=== PATIENT | male | born 1980 | race Caucasian/White ===

== ENCOUNTER 2017-07-06 13:26 | Emergency (ER) | payer OTHER ==
[2017-07-06] MEDS ORDERED: ASPIRIN 81 MG TABLET, CHEWABLE PO ONE (14:40)
--- NOTE | 2017-07-06 15:02 | RADIOLOGY REPORT (SQ) ---
EXAM DESCRIPTION: CHEST SINGLE VIEW COMPLETED DATE/TIME: 07/06/2017 2:55 pm REASON FOR STUDY: chest pain COMPARISON: None. EXAM PARAMETERS: NUMBER OF VIEWS: One view. TECHNIQUE: Single frontal radiographic view of the chest acquired. RADIATION DOSE: NA LIMITATIONS: None. FINDINGS: LUNGS AND PLEURA: No opacities, masses or pneumothorax. No pleural effusion. MEDIASTINUM AND HILAR STRUCTURES: No masses. Contour normal. HEART AND VASCULAR STRUCTURES: Heart normal in size. Normal vasculature. BONES: No acute findings. HARDWARE: None in the chest. OTHER: No other significant finding. IMPRESSION: NO ACUTE RADIOGRAPHIC FINDING IN THE CHEST. TECHNICAL DOCUMENTATION: JOB ID: [id number] [employer]- All Rights Reserved Reading location - IP/workstation name: [email or web address]
[2017-07-06 15:35] LABS: ABSOLUTE LYMPHOCYTES (AUTO) 0.7 10^3/uL (0.5-4.7); ABSOLUTE MONOCYTES (AUTO) 0.6 10^3/uL (0.1-1.4); ABSOLUTE NEUT (AUTO) 9.9 10^3/uL (1.7-8.2); BASOPHILS % (AUTO) 0.1 % (0-2); EOSINOPHILS % (AUTO) 0.1 % (0-6); HEMATOCRIT 44.2 % (37.9-51.0); HEMOGLOBIN 15.2 g/dL (13.5-17.0); LYMPHOCYTES % (AUTO) 6.6 % (13-45); MEAN CORPUSCULAR HGB CONC 34.4 g/dL (32.0-36.0); MEAN CORPUSCULAR VOLUME 99 fl (80-97); MONOCYTES % (AUTO) 5.1 % (3-13); PLATELET COUNT 310 10^3/uL (150-450); RED BLOOD COUNT 4.48 10^6/uL (4.35-5.55); RED CELL DISTRIBUTION WIDTH 13.1 % (11.5-14.0); SEGMENTED NEUTROPHILS % (AUTO) 88.1 % (42-78); TOTAL CELLS COUNTED % (AUTO) 100 %; WHITE BLOOD COUNT 11.2 10^3/uL (4.0-10.5)
--- NOTE | 2017-07-06 15:45 | ER Document Report ---
ED General - General Chief Complaint: Chest Pain Stated Complaint: RT ARM NUMBNESS Time Seen by Provider: 07/06/17 14:40 Notes: Patient says that he has not been feeling well for the past couple of weeks, since returning to his assignment in [place]. Patient says that he drove cross-country from [place] to here about 12 days ago. He was feeling fine before he drove back here. He says that his driving times were 5-6 hours of driving without a break. Patient says that he has developed weakness and shaking and loss of appetite. He is also having episodes of vomiting as well as cold sweats. He noted some numbness in the dorsal lateral aspect of his right hand, today, which seems to be resolving. He is also having some chest "pressure" in the lower anterior center of his chest, lower substernal region. Has been nauseated and actually vomited a few times. No change in bowel movements. Has not had any fever but has had sweats. Says he has not been short of breath. Patient customarily runs 3-4 times a week, 3-6 miles each time, but he has not done that since March because he had some right knee problems and was advised not to run. He thinks that may have something to do with his stamina. Denies any headache. No loss of consciousness. - Related Data Allergies/Adverse Reactions: No Known Allergies Allergy (Verified 07/06/17 14:45) Past Medical History - Social History Smoking Status: Unknown if Ever Smoked Chew tobacco use (# tins/day): Yes Frequency of alcohol use: Social Drug Abuse: None Family History: Reviewed & Not Pertinent Patient has suicidal ideation: No Patient has homicidal ideation: No Renal/ Medical History: Denies: Hx Peritoneal Dialysis Review of Systems - Review of Systems Notes: REVIEW OF SYSTEMS: CONSTITUTIONAL : Denies fever. Has had sweats. EENT: Denies eye, ear, nose or mouth or throat pain or other symptoms. CARDIOVASCULAR: Denies chest pain, but has felt some chest "pressure" in lower central chest intermittently over past weeks. RESPIRATORY: Denies cough, chest congestion, shortness of breath. GASTROINTESTINAL: Denies abdominal pain. Nausea and couple of vomitings. GENITOURINARY: Denies difficulty or painful urinating, urinary frequency, blood in urine. MUSCULOSKELETAL: Denies back or neck pain. Denies joint pain or swelling. SKIN: Denies rash or skin lesions. Bruise proximal left lower leg x 2 days-- thinks due to boots he wears. NEUROLOGICAL: Denies LOC or altered mental status. Denies headache. Denies sensory loss or motor deficits. Notes numb feeling dorsal lateral right hand Psych: anxiety on Zoloft ALL OTHER SYSTEMS REVIEWED AND NEGATIVE. Physical Exam - Vital signs Vitals: Temp Pulse Resp BP Pulse Ox 98.4 F 122 H 16 144/83 H 97 07/06/17 13:36 07/06/17 13:36 07/06/17 13:36 07/06/17 13:36 07/06/17 13:36 - Notes Notes: PHYSICAL EXAMINATION: GENERAL: Well-appearing, in no acute distress. Patient initial EKG at triage shows rate 120, normal sinus rhythm. HEAD: Atraumatic, normocephalic. EYES: Pupils equal round and reactive to light, extraocular movements intact. ENT: oropharynx clear without exudates. Moist mucous membranes. NECK: Normal range of motion, supple. LUNGS: Breath sounds clear and equal bilaterally. HEART: Regular rate and rhythm without murmurs. Heart rate about 100. Regular. ABDOMEN: Soft, nontender. No guarding or rebound. No masses. BACK: No tenderness throughout entire back. EXTREMITIES: Normal range of motion without pain. Nevagtive Homans sign bilaterally. NEUROLOGICAL: Normal speech, normal gait. Normal sensory, motor, and reflex exams. Awake, alert, and oriented x3. Cranial nerves normal. normal right hand exam PSYCH: Normal mood, normal affect. Anxious. SKIN: Warm, dry, no rashes. 4 - 5 cm diameter bruise inner, proximal, left lower leg. Course - Re-evaluation Re-evalutation: 07/06/17 20:53 Patient symptoms almost all cleared completely. Additionally, his electronic device monitor went from a heart rate of about 122 when he was triaged and confirmed on his first EKG to a rate of about 90 and he says he feels much better. His laboratory workup is essentially normal. Nurse informs me that the patient informed her that he had gone out drinking last night and when I questioned him, he said he had some shots in about 6 beers. - Vital Signs Vital signs: Temp Pulse Resp BP Pulse Ox 98.4 F 122 H 20 143/84 H 96 07/06/17 13:36 07/06/17 13:36 07/06/17 18:01 07/06/17 18:01 07/06/17 18:01 - Laboratory Result Diagrams: 07/06/17 15:15 07/06/17 15:15 Laboratory results interpreted by me: 07/06/17 07/06/17 07/06/17 15:15 15:15 15:15 WBC 11.2 H MCV 99 H MCH 34.0 H Seg Neutrophils % 88.1 H Lymphocytes % 6.6 L Absolute Neutrophils 9.9 H Chloride 97 L Calcium 10.3 H AST 65 H TSH 0.30 L Discharge - Discharge Clinical Impression: Sinus tachycardia, Anxiety Condition: Stable Disposition: HOME, SELF-CARE Additional Instructions: Sinus Tachycardia The palpitations (racing heart) you have felt are due to "sinus tachycardia." This is a rapid (but NORMAL) rhythm which can be due to fever, pain, anxiety, lack of sleep, over-exertion, or drugs. Cold medications, caffeine, and diet pills are particularly likely to cause tachycardia. The doctor has found no evidence of heart disease. Occasionally, medication is required for uncomfortable palpitations. Usually, however, all that is required is rest, reassurance, and avoiding caffeine, alcohol, nicotine , and unnecessary medicines. Call the doctor if you develop any new or unusual symptoms, or if the rapid heartbeat does not resolve. NORMAL EXAM AND WORKUP: At this time, your examination and workup show no significant abnormality. No significant abnormal physical findings were noted. All laboratory, EKG, and imaging (x-ray, CT scans, ultrasound) studies that were ordered show no significant abnormality. Although your examination and all studies that were ordered showed no significant abnormal finding, there are no examinations and no studies that are 100% accurate. There is always the possibility that some abnormality could exist and not be detected with physical examination or within the limits and capabilities of laboratory and other studies. You should return or follow up as you were instructed on your visit today for further evaluation if your symptoms do not resolve. Possible Viral Illness The physician has diagnosed a possible viral infection. Viruses not only cause "colds," but can cause many different symptoms including generalized aching, fever, headache, cough, diarrhea, nausea, vomiting, and fatigue. The treatment, for the most part, is simply relief of symptoms. This means that antibiotics are usually not given. Rest, fluids, pain medications and, occasionally, medication for the specific symptoms that are most bothersome will be prescribed. Use good handwashing to avoid passing the virus to others. Shared toys should be cleaned with disinfectant. Clean the toilets, sinks, and counter surfaces in bathrooms. Launder clothing in hot water. Contact the physician if you develop any new or unusual symptoms such as severe headache, stiff neck, high fever, chest pain, productive cough, or shortness of breath. You should be rechecked if you don't see marked improvement within seven to 10 days. Anxiety The physician feels that some of your health problems are being caused by anxiety. Anxiety affects your health in many ways. Anxiety alone can cause palpitations, sweats, chest pains, abdominal pains, shortness of breath, and headaches. It contributes to ulcer disease, high blood pressure, irritable bowel syndrome, and has been shown to cause flare-ups of many other diseases. Anxiety is not a simple disorder to treat. If the anxiety is due to recent life stresses, you may simply need time to "work through" the changes. If the anxiety is due to an underlying unhappiness with yourself or due to psychiatric disturbance, professional help will be needed. Your physician can refer you for further help if needed. Anti-anxiety medication is occasionally given if the stress is acute or if you are having trouble sleeping. Chronic or frequent use of these medications is not a good idea because the body becomes reliant on it, preventing you from dealing with life's normal stresses. Your heart rate has returned to normal and all of your lab workup is essentially normal with only minor discrepancies that are not clinically, medically significant. You might have a viral illness causing your symptoms. If so, that should resolve over the next couple of days. If you are not doing any better by Friday, I suggested [place]eval[place] Or, you can always return here for reevaluation. Drink plenty of fluids and get plenty of rest. If you develop new symptoms or worsening symptoms, return at anytime. FOLLOW-UP CARE: If you have been referred to a physician for follow-up care, call the physician s office for an appointment as you were instructed or within the next two days. If you experience worsening or a significant change in your symptoms, notify the physician immediately or return to the Emergency Department at any time for re-evaluation.
[2017-07-06 16:00] LABS: ALANINE AMINOTRANSFERASE 68 U/L (21-72); ALBUMIN 4.8 g/dL (3.5-5.0); ALKALINE PHOSPHATASE 68 U/L (38-126); ANION GAP 16 (5-19); ASPARTATE AMINO TRANSFERASE 65 U/L (17-59); BILIRUBIN,DIRECT 0.2 mg/dL (0.0-0.4); BILIRUBIN,TOTAL 0.5 mg/dL (0.2-1.3); BLOOD UREA NITROGEN 9 mg/dL (7-20); CALCIUM 10.3 mg/dL (8.4-10.2); CARBON DIOXIDE 30 mmol/L (22-30); CHLORIDE 97 mmol/L (98-107); CREATINE KINASE 140 U/L (55-170); GLUCOSE 92 mg/dL (75-110); POTASSIUM 4.3 mmol/L (3.6-5.0); SODIUM 142.5 mmol/L (137-145); TOTAL PROTEIN 7.8 g/dL (6.3-8.2)
[2017-07-06 16:03] LABS: CREATINE KINASE MB 0.95 ng/mL (<4.55)
[2017-07-06 16:05] LABS: TROPONIN I < 0.012 ng/mL
[2017-07-06 16:08] LABS: FREE T3 4.57 pg/mL (2.77-5.27); FREE T4 (FREE THYROXINE) 0.88 ng/dL (0.78-2.19)
[2017-07-06 16:22] LABS: THYROID STIMULATING HORMONE 0.3 uIU/mL (0.47-4.68)
[2017-07-06 18:08] VITALS: BP 143/84
--- NOTE | 2017-07-06 21:38 | EKG REPORT ---
SEVERITY:- ABNORMAL ECG - SINUS RHYTHM NONSPECIFIC INTRAVENTRICULAR CONDUCTION DELAY : Confirmed by: Nazia Castillo 06-Jul-2017 21:37:40
--- NOTE | 2017-07-06 21:39 | EKG REPORT ---
SEVERITY:- OTHERWISE NORMAL ECG - SINUS TACHYCARDIA : Confirmed by: Nazia Castillo 06-Jul-2017 21:37:57
== END 2017-07-06 18:12 | disposition home or self-care (01) ==
LOC: ER 13:26
DX: R00.0 Tachycardia, unspecified (principal); F41.9 Anxiety disorder, unspecified; R07.9 Chest pain, unspecified; R20.0 Anesthesia of skin
CPT/HCPCS: 36415; 71045; 80053; 82550; 82553; 84439; 84443; 84481; 84484; 85025; 85379; 93005; 93010; 99285